=== PATIENT | female | born 1965 | race African-American/Black ===

== ENCOUNTER 2021-05-22 12:18 | Emergency (ER) | payer BC ==
[2021-05-22] MEDS ORDERED: Ventolin HFA Inhaler 60 PUFF INHALER ONE (14:51)
[2021-05-22 15:54] LABS: SARS-CoV-2 NAA Rapid Test Not Detected (NotDetected)
== END 2021-05-22 15:53 | disposition home or self-care (01) ==
LOC: CSHERS 12:18
DX: J04.0 Acute laryngitis (principal); I10 Essential (primary) hypertension; E11.9 Type 2 diabetes mellitus without complications; E78.5 Hyperlipidemia, unspecified; E78.00 Pure hypercholesterolemia, unspecified; M06.9 Rheumatoid arthritis, unspecified; Z20.822 Contact with and (suspected) exposure to COVID-19
CPT/HCPCS: 0240U; 71045

== ENCOUNTER 2022-09-02 17:02 | Emergency (ER) | payer BC ==
[2022-09-02] MEDS ORDERED: Ketorolac Tromethamine 30 MG/ML VIAL ONE (19:11)
== END 2022-09-02 19:37 | disposition home or self-care (01) ==
LOC: CSHERS 17:02
DX: M25.512 Pain in left shoulder (principal); M25.531 Pain in right wrist; E78.00 Pure hypercholesterolemia, unspecified; E11.9 Type 2 diabetes mellitus without complications; I10 Essential (primary) hypertension
CPT/HCPCS: 96372; J1885

== ENCOUNTER 2023-04-05 13:08 | Outpatient (CLI) | payer BC | END 2023-04-05 13:09 | disposition home or self-care (01) | LOC: CSHMAMMO 13:08 | PROVIDERS: ATTEND Family Medicine | DX: Z12.31 Encounter for screening mammogram for malignant neoplasm of breast (principal); Z80.3 Family history of malignant neoplasm of breast; Z98.890 Other specified postprocedural states | CPT/HCPCS: 77063; 77067 ==